=== PATIENT | female | born 1975 | race Caucasian/White ===

== ENCOUNTER → 2018-03-22 | Outpatient (CLI) | payer OTHER ==
--- NOTE | 2018-04-06 13:44 | SLEEP ---
[address] [address] SLEEP STUDY REPORT Name: LASHA CURTIS Room: [facility]#: [id number] Admission: 03/22/18 Attend Phys: Aniya Santoro Discharge: Date of : 77 Report #: [id number] THIS REPORT FOR: //name// CC: JUAN Welch Ava Bronson This study has been reviewed in its entirety by a board certified sleep specialist DATE OF SERVICE: 03/26/2018 ATTENDING PHYSICIAN: Dr. Juan Pacheco. The patient is a 43 years old who weighs 240 pounds and is 65 inches tall. The patient's Julian score was 22. The patient is not on any sedative medications. The patient underwent home sleep study performed at [facility]. Total recording time was 429 minutes. During the night of study, the patient had 11 obstructive apneas, no central apneas and no mixed apneas. There were 14 hypopneas. The patient's apnea-hypopnea index for the entire night was 3.5 per hour with a supine index of 3.5 per hour as well. Review of nocturnal oximetry study revealed an average oxygen saturation of 95% with a lowest of 89%. No clinically significant desaturations were observed. Mean heart rate was 63 beats per minute. IMPRESSION: 1. No clinically significant sleep disordered breathing. The patient's AHI for the entire night was 3.5 per hour. 2. No clinically significant nocturnal hypoxia. RECOMMENDATIONS: 1. The patient's complain of severe subjective hypersomnia is out of proportion to the polysomnographic findings. There was no evidence of sleep disordered breathing. The patient is not on any sedative medications. Consider ruling out other disorders such as narcolepsy or idiopathic hypersomnia. The patient would benefit from multiple sleep latency test. 2. Avoid RN CORRECTIONAL depressants. 3. Cautioned regarding driving until the patient's hypersomnia is resolved with the above recommendations. <ELECTRONICALLY SIGNED> By: Arturo Velazquez MD 04/06/18 [id number] Boyd Velazquez MD /nt
== END ==
LOC: M.SLEEPLAB 03-03 09:00
DX: G47.33 Obstructive sleep apnea (adult) (pediatric) (principal); G47.419 Narcolepsy without cataplexy; J34.89 Other specified disorders of nose and nasal sinuses; R06.83 Snoring; I10 Essential (primary) hypertension; Z83.3 Family history of diabetes mellitus